=== PATIENT | male | born 1985 | race Caucasian/White ===

== ENCOUNTER 2016-09-28 17:37 | Emergency (ER) | payer BC ==
[2016-09-28 17:48] VITALS: BP 145/98
--- NOTE | 2016-09-28 17:51 | EDM.PDOC ---
ED HPI GENERAL MEDICAL PROBLEM - General Chief Complaint: Skin Complaint Stated Complaint: SUNBURN Time Seen by Provider: 09/28/16 17:38 Source of Information: Reports: Patient, RN, RN Notes Reviewed History Limitations: Reports: No Limitations - History of Present Illness INITIAL COMMENTS - FREE TEXT/NARRATIVE: Patient presents to the ED at [facility] with complaints of a worsening sunburn. Patient states he was out on a genao 2 days ago when he was sunburned. He states he was not wearing any sunscreen. He had been using Aloe Vera with Benzocaine gel the past couple of days, but it is no longer working. He feels anxious and the sunburn is very itchy. No other concerns. Onset Date: 09/26/16 Back Pain Score (Numeric/FACES): 10 - Related Data Allergies Allergy/AdvReac Type Severity Reaction Status Date / Time No Known Drug Allergies Allergy Other Verified 09/28/16 17:50 Home Meds: Home Meds Silver Sulfadiazine [Silvadene 1% Cream 50 GM] 1 applic TOP BID #1 tube [Rx] predniSONE [Prednisone] 20 mg PO BID #8 tablet 09/28/16 [Rx] Past Medical History - Past Health History Medical/Surgical History: Denies Medical/Surgical History Social & Family History - Tobacco Use Smoking Status *Q: Current Every Day Smoker Years of Tobacco use: 25 Packs/Tins Daily: 1 Second Hand Smoke Exposure: No - Alcohol Use Days Per Week of Alcohol Use: 0 Number of Drinks Per Day: 7 Total Drinks Per Week: 0 - Recreational Drug Use Recreational Drug Use: No Drug Use in Last 12 Months: No Recreational Drug Type: Reports: Marijuana/Hashish Recreational Drug Use Frequency: Not Used In Over 6 Months ED ROS GENERAL - Review of Systems Review Of Systems: See Below Constitutional: Denies: Fever, Chills Respiratory: Denies: Shortness of Breath, Cough Cardiovascular: Denies: Chest Pain, Palpitations Skin: Reports: Pruritis, Burn(s) (Sun) Neurological: Reports: No Symptoms ED EXAM, SKIN/RASH Exam: See Below Exam Limited By: No Limitations General Appearance: Alert, No Apparent Distress, Mild Distress Respiratory/Chest: No Respiratory Distress, Lungs Clear, Normal Breath Sounds Cardiovascular: Regular Rate, Rhythm Neurological: Alert, Oriented Skin: Warm, Dry, Normal Color Location, Skin: Chest, Abdomen, Back Characteristics: Other (sunburn) Associated features: Warmth, Tenderness Course - Vital Signs Last Recorded V/S: Last Vital Signs Temp 36.6 C 09/28/16 17:47 Pulse 107 H 09/28/16 17:47 Resp 24 H 09/28/16 17:47 BP 145/98 H 09/28/16 17:47 Pulse Ox 97 09/28/16 17:47 - Orders/Labs/Meds Meds: Medications Discontinued Medications Generic Name Dose Route Start Last Admin Trade Name Martina PRN Reason Stop Dose Admin Hydroxyzine HCl 50 mg 09/28/16 17:54 Vistaril IM 09/28/16 17:55 ONETIME ONE Methylprednisolone Sodium Succinate 125 mg 09/28/16 17:55 Solu-Medrol IM 09/28/16 17:56 ONETIME ONE Prednisone 1 packet 09/28/16 17:55 Take Home: Prednisone 20 Mg, 2 Tab Pack PO 09/28/16 17:56 ONETIME ONE Departure - Departure Time of Disposition: 18:00 Disposition: Home, Self-Care 01 Condition: Good Clinical Impression: Sunburn of second degree - Discharge Information Prescriptions: Silver Sulfadiazine [Silvadene 1% Cream 50 GM] 1 applic TOP BID #1 tube predniSONE [Prednisone] 20 mg PO BID #8 tablet Instructions: Sunburn, [id number], Pruritus Forms: ED Department Discharge Additional Instructions: 1. Stay well hydrated and rest 2. Stay out of the sun, or cover areas with sunscreen if out in sun 3. Apply ice to burn areas several times a day 4. Use burn cream twice a day for 5 days 5. Take medications as directed 6. See your Primary as symptoms warrant - Problem List Review Problem List Initiated/Reviewed/Updated: Yes
[2016-09-28] MEDS ORDERED: hydrOXYzine HCl 50 MG/ML SDV IM ONE (17:54)
[2016-09-28] MEDS ORDERED: Take Home: predniSONE 20 MG, 2 Tab Pack PO ONE (17:55)
[2016-09-28] MEDS ORDERED: methylPREDNISolone Sodium Succinate 125 MG/2 ML SDV IM ONE (17:55)
[2016-09-28] MEDS ORDERED: Silver Sulfadiazine 1% Crm 50 GM Tube TOP ONE (18:18)
== END 2016-09-28 18:20 | disposition home or self-care (01) ==
LOC: VM.ED 17:37
DX: L55.1 Sunburn of second degree (principal); F17.210 Nicotine dependence, cigarettes, uncomplicated
CPT/HCPCS: 96372; 99282; A9270; J2930; J3410

== ENCOUNTER 2017-07-07 21:48 | Emergency (ER) | payer BC, OTHER ==
[2017-07-07 22:00] VITALS: BP 150/89
--- NOTE | 2017-07-07 22:08 | EDM.PDOC ---
ED HPI GENERAL MEDICAL PROBLEM - General Chief Complaint: Lower Extremity Injury/Pain Stated Complaint: ladder fell on foot Time Seen by Provider: 07/07/17 22:07 Source of Information: Reports: Patient, RN, RN Notes Reviewed History Limitations: Reports: No Limitations - History of Present Illness INITIAL COMMENTS - FREE TEXT/NARRATIVE: Patient presents to the ED at [facility] complaining of right foot pain. Patient states a ladder fell and hit the top of his right foot. 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 He states his partner was rolling up a ladder by rope when the rope broke and the ladder got loose and hit the top of the patient's foot. No previous injury or trauma. No previous right foot surgeries. Patient states the pain is mostly on the dorsum of the right foot. He denies any numbness, tingling, or paresthesia to the right lower extremity. Patient states this is a work related injury. Onset: Today, Sudden Onset Date: 07/07/17 Right Feet Pain Score (Numeric/FACES): 8 - Related Data Allergies Allergy/AdvReac Type Severity Reaction Status Date / Time No Known Drug Allergies Allergy Other Verified 07/07/17 22:02 Home Meds: Home Meds Silver Sulfadiazine [Silvadene 1% Cream 50 GM] 1 applic TOP BID #1 tube [Rx] hydrOXYzine Pamoate [Hydroxyzine Pamoate] 50 mg PO Q6HR PRN #20 capsule [Rx] predniSONE [Prednisone] 20 mg PO BID #8 tablet 09/28/16 [Rx] Past Medical History - Past Health History Medical/Surgical History: Denies Medical/Surgical History Social & Family History - Tobacco Use Smoking Status *Q: Current Every Day Smoker Years of Tobacco use: 20 Packs/Tins Daily: 1 Second Hand Smoke Exposure: No - Alcohol Use Days Per Week of Alcohol Use: 0 Number of Drinks Per Day: 7 Total Drinks Per Week: 0 - Recreational Drug Use Recreational Drug Use: No Drug Use in Last 12 Months: No Recreational Drug Type: Reports: Marijuana/Hashish Recreational Drug Use Frequency: Not Used In Over 6 Months Review of Systems - Review of Systems Review Of Systems: See Below Constitutional: Denies: Chills, Fever Respiratory: Denies: Shortness of Breath, Cough Cardiovascular: Denies: Chest Pain, Palpitations Musculoskeletal: Reports: Foot Pain Skin: Reports: No Symptoms Neurological: Reports: No Symptoms. Denies: Numbness, Paresthesia, Tingling ED EXAM, GENERAL - Physical Exam Exam: See Below Exam Limited By: No Limitations General Appearance: Alert, No Apparent Distress Respiratory/Chest: No Respiratory Distress, Lungs Clear, Normal Breath Sounds Cardiovascular: Normal Peripheral Pulses, Regular Rate, Rhythm Peripheral Pulses: 2+: Posterior Tibial (R), Dorsalis Pedis (R) Extremities: Normal Inspection, Normal Range of Motion, Normal Capillary Refill , Other (Right foot appears normal; no evidence of trauma; no obvious bone deformity; no bruising; tender to palpation around the mid shaft 3/4th digits). No: Joint Swelling Neurological: Alert, Oriented, No Motor/Sensory Deficits Skin Exam: Warm, Dry, Intact, Normal Color Course - Vital Signs Last Recorded V/S: Last Vital Signs Temp 36.7 C 07/07/17 21:50 Pulse 115 H 07/07/17 21:50 Resp 20 07/07/17 21:50 BP 150/89 H 07/07/17 21:50 Pulse Ox 95 07/07/17 21:50 - Orders/Labs/Meds Orders: Active Orders 24 hr Category Date Time Status Foot Comp Min 3V Rt [CR] Stat Exams 07/07/17 22:20 Ordered - Radiology Interpretation Free Text/Narrative:: Right Foot 2V-3V: No acute fractures or dislocations on plain film - see scanned report in EMR Departure - Departure Time of Disposition: 22:37 Disposition: Home, Self-Care 01 Condition: Good Clinical Impression: Encounter related to worker's compensation claim Right foot injury Qualifiers: Encounter type: initial encounter Qualified Code(s): S99.921A - Unspecified injury of right foot, initial encounter Contusion of right foot Qualifiers: Encounter type: initial encounter Qualified Code(s): S90.31XA - Contusion of right foot, initial encounter - Discharge Information Instructions: Foot Contusion, Foot Pain Forms: ED Department Discharge Additional Instructions: 1. Stay well hydrated and rest 2. Rest, elevate, and ice the right foot several times a day 3. May alternate Tylenol/Advil as needed for pain 4. No restrictions to the use of your foot 5. Wrap foot with VALENTINO wrap to avoid any foot swelling 6. See your Primary as symptoms warrant 7. Call us with any questions/concerns - Problem List Review Problem List Initiated/Reviewed/Updated: Yes - My Orders Last 24 Hours: My Active Orders 07/07/17 22:20 Foot Comp Min 3V Rt [CR] Stat - Assessment/Plan Last 24 Hours: My Active Orders 07/07/17 22:20 Foot Comp Min 3V Rt [CR] Stat
== END 2017-07-07 22:52 | disposition home or self-care (01) ==
LOC: VM.ED 21:48
DX: S90.31XA Contusion of right foot, initial encounter (principal); F17.210 Nicotine dependence, cigarettes, uncomplicated; Y99.0 Civilian activity done for income or pay
CPT/HCPCS: 73630-RT; 99283

== ENCOUNTER 2019-12-30 15:07 | Emergency (ER) | payer SELFPAY ==
--- NOTE | 2019-12-30 15:40 | EDM.PDOC ---
ED HPI GENERAL MEDICAL PROBLEM - General Chief Complaint: Cardiovascular Problem Stated Complaint: CHEST PAIN Time Seen by Provider: 12/30/19 15:15 Source of Information: Reports: Patient History Limitations: Reports: No Limitations - History of Present Illness INITIAL COMMENTS - FREE TEXT/NARRATIVE: Tray is a 34 year old male who presents to the ER with complaints of left ant erior chest pain. States it does hurt more with deep inspiration, coughing and movement. States awoke with this pain yesterday, has not improved. He denies any shortness of breath. Has chronic cough related to smoking history. No hemoptysis or sputum production. No fevers. Denies any trauma to the area. Has not been lifting or straining self. Has been eating and drinking well. Appetite has been good. No blood in his stools. PMH is positive for anxiety and depression. No cardiac history. Unknown family history as is adopted. Onset: Gradual Duration: Day(s): Location: Reports: Chest Quality: Reports: Ache, Sharp Severity: Moderate Improves with: Reports: Rest Worsens with: Reports: Movement Associated Symptoms: Reports: Chest Pain, Cough. Denies: Confusion, cough w sputum, Diaphoresis, Fever/Chills, Headaches, Loss of Appetite, Nausea/Vomiting, Shortness of Breath, Syncope, Weakness - Related Data Allergies Allergy/AdvReac Type Severity Reaction Status Date / Time No Known Drug Allergies Allergy Other Verified 07/07/17 22:02 Home Meds: Home Meds Silver Sulfadiazine [Silvadene 1% Cream 50 GM] 1 applic TOP BID #1 tube 09/28/16 [Rx] hydrOXYzine pamoate [Hydroxyzine Pamoate] 50 mg PO Q6HR PRN #20 capsule 09/28/16 [Rx] predniSONE [Prednisone] 20 mg PO BID #8 tablet 09/28/16 [Rx] Past Medical History - Past Health History Medical/Surgical History: Denies Medical/Surgical History Psychiatric History: Reports: Anxiety, Depression Social & Family History - Tobacco Use Smoking Status *Q: Current Every Day Smoker ED ROS GENERAL - Review of Systems Review Of Systems: See Below Constitutional: Denies: Fever, Chills, Malaise, Weakness, Fatigue, Decreased Appetite HEENT: Reports: No Symptoms Respiratory: Reports: Pleuritic Chest Pain, Cough. Denies: Shortness of Breath Cardiovascular: Reports: Chest Pain. Denies: Edema, Lightheadedness Endocrine: Denies: Fatigue GI/Abdominal: Denies: Abdominal Pain, Constipation, Diarrhea, Nausea, Vomiting : Reports: No Symptoms Musculoskeletal: Reports: No Symptoms Skin: Reports: No Symptoms Neurological: Reports: No Symptoms Psychiatric: Reports: No Symptoms ED EXAM, GENERAL - Physical Exam Exam: See Below Exam Limited By: No Limitations General Appearance: Alert, WD/WN, No Apparent Distress Ears: Normal External Exam, Normal TMs Nose: Normal Inspection, Normal Mucosa, No Blood Throat/Mouth: Normal Inspection, Normal Oropharynx Head: Normocephalic Neck: Normal Inspection, Supple, Non-Tender Respiratory/Chest: No Respiratory Distress, Lungs Clear, Normal Breath Sounds, Other (chest wall is very tender with palpation, pain reproducible) Cardiovascular: Regular Rate, Rhythm GI/Abdominal: Normal Bowel Sounds, Soft, Non-Tender Extremities: Normal Inspection, No Pedal Edema Neurological: Alert, Oriented Skin Exam: Warm, Dry Course - Orders/Labs/Meds Orders: Active Orders 24 hr Category Date Time Status EKG 12 Lead [EKG Documentation Completion] [RC] AM Care 12/30/19 15:26 Active Labs: Laboratory Tests 12/30/19 12/30/19 Range/Units 15:40 15:40 WBC 8.0 (4.0-10.0) x10^3/uL RBC 5.47 (4.5-6.0) x10^6/uL Hgb 17.9 (14.0-18.0) g/dL Hct 49.2 (40.0-52.0) % MCV 89.9 (78.0-93.0) fL MCH 32.7 H (26.0-32.0) pg MCHC 36.4 H (32.0-36.0) g/dL RDW Coeff of Lucia 12.6 (10.0-15.0) % Plt Count 119 L (130-400) x10^3/uL Neut % (Auto) 49.8 L (50.0-80.0) % Lymph % (Auto) 35.9 (25.0-50.0) % Porter % (Auto) 9.6 (2.0-11.0) % Eos % (Auto) 4.4 H (0.0-4.0) % Baso % (Auto) 0.3 (0.2-1.2) % Sodium 138 (136-145) mmol/L Potassium 4.3 (3.5-5.1) mmol/L Chloride 102 (98-107) mmol/L Carbon Dioxide 29 (21-32) mmol/L Anion Gap 11.3 (10-20) mmol/L BUN 16 (7-18) mg/dL Creatinine 1.1 (0.70-1.30) mg/dL Est Cr Clr Drug Dosing TNP Estimated GFR (MDRD) > 60 Glucose 90 (74-106) mg/dL Calcium 8.8 (8.5-10.1) mg/dL Corrected Calcium 8.72 (8.5-10.1) mg/dL Total Bilirubin 0.6 (0.2-1.0) mg/dL AST 30 (15-37) U/L ALT 67 H (16-63) U/L Alkaline Phosphatase 42 L (46-116) U/L Lactate Dehydrogenase 209 (85-227) U/L Creatine Kinase 439 H* (39-308) U/L Troponin I < 0.017 (<=0.056) ng/mL C-Reactive Protein < 0.2 (<=0.9) mg/dL Total Protein 8.0 (6.4-8.2) g/dL Albumin 4.1 (3.4-5.0) g/dL Globulin 3.9 Albumin/Globulin Ratio 1.05 Meds: Medications Discontinued Medications Generic Name Dose Route Start Last Admin Trade Name Freq PRN Reason Stop Dose Admin Prednisone 1 packet 12/30/19 16:16 Take Home: Prednisone 20 Mg, 2 Tab Pack PO 12/30/19 16:17 ONETIME ONE - Re-Assessments/Exams Free Text/Narrative Re-Assessment/Exam: 12/30/19 16:20 Labs reviewed. CK is elevated. Discussed with patient. Will treat with oral prednisone, follow up if pain persists. Departure - Departure Time of Disposition: 16:20 Disposition: Home, Self-Care 01 Condition: Good Clinical Impression: Costochondritis, acute Instructions: Costochondritis, [id number] Referrals: Osmar Taylor MD [Primary Care Provider] - Forms: ED Department Discharge Additional Instructions: 1. Rest 2. Push fluids 3. Heating pad to chest 4. Prednisone 40 mg daily for 5 days 5. Follow up with primary care provider as needed for further pain - My Orders Last 24 Hours: My Active Orders 12/30/19 15:26 EKG 12 Lead [EKG Documentation Completion] [RC] AM - Assessment/Plan Last 24 Hours: My Active Orders 12/30/19 15:26 EKG 12 Lead [EKG Documentation Completion] [RC] AM
--- NOTE | 2019-12-30 16:03 | CR ---
[id number] RAD/RAD Chest PA And Lateral EXAM: FRONTAL AND LATERAL CHEST INDICATION: CHEST PAIN. COMPARISON: None. DISCUSSION: The heart and lungs are normal in appearance. IMPRESSION: 1. Negative exam. Paul Dalton MD 12/30/19 [id number] Thank you for allowing us to participate in the care of your patient.
[2019-12-30 16:07] LABS: ANION GAP 11.3 mmol/L (10-20); CHLORIDE,CL 102 mmol/L (98-107); SODIUM,NA 138 mmol/L (136-145)
[2019-12-30] MEDS ORDERED: Take Home: predniSONE 20 MG, 2 Tab Pack PO ONE (16:16)
[2019-12-30 20:32] VITALS: BP 142/78; PULSE 72
== END 2019-12-30 16:30 | disposition home or self-care (01) ==
LOC: VM.ED 15:07
DX: M94.0 Chondrocostal junction syndrome [Tietze] (principal); R79.89 Other specified abnormal findings of blood chemistry; F17.200 Nicotine dependence, unspecified, uncomplicated
CPT/HCPCS: 36415; 71046; 80053; 82550; 83615; 84484; 85025; 86140; 93005; 99285-25

== ENCOUNTER 2021-06-05 18:47 | Emergency (ER) | payer SELFPAY ==
[2021-06-05] MEDS ORDERED: Albuterol/Ipratropium 3.0-0.5 MG/3 ML Neb Soln NEB ONE (19:46)
[2021-06-05] MEDS ORDERED: Take Home: Albuterol 18 GM Inhaler, 1 Inhaler Pack INH PRN (20:07)
[2021-06-05] MEDS ORDERED: Take Home: Amoxicillin 875 MG Tab, 2 Tab Pack PO ONE (20:09)
[2021-06-06 05:37] VITALS: BP 132/75; PULSE 98
== END 2021-06-05 20:48 | disposition home or self-care (01) ==
LOC: VM.ED 18:47
DX: J45.909 Unspecified asthma, uncomplicated (principal); H66.92 Otitis media, unspecified, left ear; Z91.030 Bee allergy status
CPT/HCPCS: 94640; 99283-25; 99284; A9270-GY; J7620-GY

== ENCOUNTER 2022-05-04 19:41 | Emergency (ER) | payer OTHER ==
[2022-05-04] MEDS: GI Cocktail Oral Solution 30 ML PO ONE (20:00)
[2022-05-04] MEDS: Orphenadrine 60 MG/2 ML Inj IM ONE (20:15)
[2022-05-04 20:33] LABS: CHLORIDE,CL 107 mmol/L (98-107); SODIUM,NA 143 mmol/L (136-145)
[2022-05-04 20:36] LABS: ANION GAP 13.9 mmol/L (5-15); ESTIMATED GFR 88 mL/min (>=60)
[2022-05-04 20:52] VITALS: BP 117/74; PULSE 86
== END 2022-05-04 21:10 | disposition home or self-care (01) ==
LOC: VM.ED 19:41
DX: K21.9 Gastro-esophageal reflux disease without esophagitis (principal); M25.512 Pain in left shoulder; Z91.013 Allergy to seafood; Z79.899 Other long term (current) drug therapy
CPT/HCPCS: 36415; 71046; 80053; 84484; 85025; 93005; 93010; 96372; 99284; 99285; A9270-GY; J2360

== ENCOUNTER 2023-03-27 18:05 | Emergency (ER) | payer OTHER ==
[2023-03-27 18:15] VITALS: BP 135/72; PULSE 100
[2023-03-27 18:36] LABS: BASOPHILS PERCENT AUTO 0.2 % (0.2-1.2); EOSINOPHILS ABSOLUTE AUTO 0.1 x10^3/uL (0.0-0.5); EOSINOPHILS PERCENT AUTO 0.7 % (0.0-4.0); HEMATOCRIT 52.5 % (40.0-52.0); HEMOGLOBIN 18.7 g/dL (14.0-18.0); IMMATURE GRAN ABSOLUTE AUTO 0.02 x10^3/uL (0.00-0.07); LYMPHOCYTES ABSOLUTE AUTO 1.6 x10^3/uL (1.0-4.8); LYMPHOCYTES PERCENT AUTO 14.7 % (25.0-50.0); MEAN CORPUSCULAR HGB CONC 35.6 g/dL (32.0-36.0); MEAN CORPUSCULAR VOLUME 89.9 fL (78.0-93.0); MONOCYTES ABSOLUTE AUTO 0.7 x10^3/uL (0.0-0.8); MONOCYTES PERCENT AUTO 6.6 % (2.0-11.0); NEUTROPHILS ABSOLUTE AUTO 8.5 x10^3/uL (1.8-7.7); NEUTROPHILS PERCENT AUTO 77.6 % (50.0-80.0); PLATELET COUNT,PLT 141 x10^3/uL (130-400); RED BLOOD CELL COUNT 5.84 x10^6/uL (4.5-6.0); WHITE BLOOD CELL COUNT,WBC 10.9 x10^3/uL (4.0-10.0)
[2023-03-27 18:38] LABS: APPEARANCE,URINE CLEAR (CLEAR); BILIRUBIN,URINE SMALL (NEGATIVE); COLOR,URINE DARK YELLOW (YELLOW); GLUCOSE,URINE NEGATIVE (NEGATIVE); KETONES,URINE NEGATIVE (NEGATIVE); LEUKOCYTE ESTERASE,URINE NEGATIVE (NEGATIVE); NITRITE,URINE NEGATIVE (NEGATIVE); OCCULT BLOOD,URINE NEGATIVE (NEGATIVE); PROTEIN,URINE 30 mg/dL (NEGATIVE); UROBILINOGEN,URINE 0.2 EU/dL (0.2)
[2023-03-27 18:43] LABS: AMPHETAMINES SCREEN, URINE NEGATIVE (NEGATIVE); BARBITURATE SCREEN,URINE NEGATIVE (NEGATIVE); BENZODIAZEPINES SCREEN,URINE NEGATIVE (NEGATIVE); BUPRENORPHINE SCREEN,URINE NEGATIVE (NEGATIVE); COCAINE METABOLITES,URINE NEGATIVE (NEGATIVE); METHADONE SCREEN, URINE NEGATIVE (NEGATIVE); METHAMPHETAMINE SCREEN, URINE NEGATIVE (NEGATIVE); OXYCODONE SCREEN,URINE NEGATIVE (NEGATIVE); PCP SCREEN,URINE NEGATIVE (NEGATIVE); THC SCREEN,URINE 50 NG/ML NEGATIVE (NEGATIVE)
[2023-03-27 18:49] LABS: BACTERIA,URINE NOT SEEN /HPF (NOT SEEN); MUCUS,URINE MANY /LPF (NOT SEEN); RBC,URINE NOT SEEN /HPF (NOT SEEN); SQUAMOUS EPITHELIAL CELLS,UR RARE /HPF (NOT SEEN); WBC,URINE 0-5 /HPF (NOT SEEN)
[2023-03-27 19:06] LABS: A/G RATIO 1.31; ALANINE AMINOTRANSFERASE,ALT 62 U/L (16-63); ALBUMIN 4.7 g/dL (3.4-5.0); ALKALINE PHOSPHATASE 53 U/L (46-116); ASPARTATE AMNIOTRANSFERASE,AST 24 U/L (15-37); BILIRUBIN TOTAL 0.7 mg/dL (0.2-1.0); BLOOD UREA NITROGEN,BUN 10 mg/dL (7-18); CALCIUM 9.6 mg/dL (8.5-10.1); CARBON DIOXIDE,CO2 31 mmol/L (21-32); CHLORIDE,CL 102 mmol/L (98-107); CREATININE 1.2 mg/dL (0.70-1.30); GLUCOSE RANDOM 104 mg/dL (70-99); POTASSIUM,K 3.9 mmol/L (3.5-5.1); PROTEIN TOTAL,TP 8.3 g/dL (6.4-8.2); SODIUM,NA 142 mmol/L (136-145); TSH ULTRASENSITIVE 1.151 uIU/mL (0.358-3.74)
[2023-03-27 19:11] LABS: ANION GAP 12.9 mmol/L (5-15); ESTIMATED GFR 79 mL/min (>=60)
[2023-03-27 19:12] LABS: ACETAMINOPHEN 0 ug/ml (10-30); ETHANOL BLOOD MEDICAL < 3 mg/dL (0-3)
== END 2023-03-27 19:48 | disposition home or self-care (01) ==
LOC: VM.ED 18:05
DX: F32.9 Major depressive disorder, single episode, unspecified (principal); R45.851 Suicidal ideations; Z91.013 Allergy to seafood
CPT/HCPCS: 36415; 80053; 80143; 80179; 80305-QW; 80307; 81001; 83735; 84443; 85025; 99285

== ENCOUNTER 2023-06-23 22:21 | Emergency (ER) | payer SELFPAY ==
[2023-06-23 22:52] VITALS: BP 118/76; PULSE 118
[2023-06-23] MEDS: Ibuprofen 200 MG Tab PO ONE (22:59)
[2023-06-23 23:24] LABS: CORONAVIRUS COVID-19 NAA NEGATIVE (NEGATIVE)
[2023-06-23 23:25] LABS: INFLUENZA B NAA NEGATIVE (NEGATIVE)
[2023-06-23 23:26] LABS: RESPIRATORY SYNCYTIAL VIR NAA NEGATIVE (NEGATIVE)
[2023-06-23] MEDS: Take Home: Oseltamivir 75 MG Cap, 2 Cap Pack PO ONE (23:30)
[2023-06-23] MEDS: Benzonatate 100 MG Cap PO ONE (23:33)
[2023-06-28 15:30] LABS: INFLUENZA A NAA POSITIVE (NEGATIVE)
== END 2023-06-23 23:39 | disposition home or self-care (01) ==
LOC: VM.ED 22:21
DX: J10.1 Influenza due to other identified influenza virus with other respiratory manifestations (principal); F17.210 Nicotine dependence, cigarettes, uncomplicated; Z91.013 Allergy to seafood
CPT/HCPCS: 0241U; 87651-QW; 99283; A9270-GY

== ENCOUNTER 2024-06-26 12:07 | Emergency (ER) | payer OTHER ==
[2024-06-26] MEDS ORDERED: Sodium Chloride 0.9% 10 ML Syringe FLUSH PRN (12:27)
[2024-06-26 12:33] LABS: BASOPHILS PERCENT AUTO 0.1 % (0.2-1.2); EOSINOPHILS ABSOLUTE AUTO 0.2 x10^3/uL (0.0-0.5); EOSINOPHILS PERCENT AUTO 2.7 % (0.0-4.0); HEMATOCRIT 50.9 % (40.0-52.0); HEMOGLOBIN 18.4 g/dL (14.0-18.0); IMMATURE GRAN ABSOLUTE AUTO 0.01 x10^3/uL (0.00-0.07); LYMPHOCYTES ABSOLUTE AUTO 1.2 x10^3/uL (1.0-4.8); LYMPHOCYTES PERCENT AUTO 14.5 % (25.0-50.0); MEAN CORPUSCULAR HEMOGLOBIN 32.3 pg (26.0-32.0); MEAN CORPUSCULAR HGB CONC 36.1 g/dL (32.0-36.0); MEAN CORPUSCULAR VOLUME 89.3 fL (78.0-93.0); MONOCYTES ABSOLUTE AUTO 0.6 x10^3/uL (0.0-0.8); MONOCYTES PERCENT AUTO 7.6 % (2.0-11.0); PLATELET COUNT,PLT 134 x10^3/uL (130-400); WHITE BLOOD CELL COUNT,WBC 8.1 x10^3/uL (4.0-10.0)
[2024-06-26] MEDS: Lactated Ringers 1,000 ML IV ONE ×2 (12:38→13:14)
[2024-06-26] MEDS: Ondansetron 4 MG/2 ML SDV IVPUSH ONE (12:38)
[2024-06-26] MEDS: Ketorolac 15 MG/ML SDV IVPUSH ONE (12:38)
[2024-06-26 12:47] LABS: APPEARANCE,URINE CLEAR (CLEAR); BILIRUBIN,URINE NEGATIVE (NEGATIVE); COLOR,URINE DARK YELLOW (YELLOW); GLUCOSE,URINE NEGATIVE (NEGATIVE); KETONES,URINE NEGATIVE (NEGATIVE); LEUKOCYTE ESTERASE,URINE NEGATIVE (NEGATIVE); NITRITE,URINE NEGATIVE (NEGATIVE); OCCULT BLOOD,URINE NEGATIVE (NEGATIVE); PH,URINE 5.5 (5.0-8.0); PROTEIN,URINE 30 mg/dL (NEGATIVE); UROBILINOGEN,URINE 0.2 EU/dL (0.2)
[2024-06-26 12:51] LABS: A/G RATIO 1.08; ALANINE AMINOTRANSFERASE,ALT 105 U/L (16-63); ALBUMIN 4.1 g/dL (3.4-5.0); ALKALINE PHOSPHATASE 59 U/L (46-116); ANION GAP 10.9 mmol/L (5-15); ASPARTATE AMNIOTRANSFERASE,AST 40 U/L (15-37); BILIRUBIN TOTAL 0.7 mg/dL (0.2-1.0); BLOOD UREA NITROGEN,BUN 18 mg/dL (7-18); C-REACTIVE PROTEIN 2.41 mg/dL (<=0.50); CALCIUM 8.7 mg/dL (8.5-10.1); CARBON DIOXIDE,CO2 28 mmol/L (21-32); CHLORIDE,CL 102 mmol/L (98-107); CREATININE 1.1 mg/dL (0.70-1.30); ESTIMATED GFR 87 mL/min (>=60); GLUCOSE RANDOM 108 mg/dL (70-99); LIPASE 25 U/L (19-71); POTASSIUM,K 3.9 mmol/L (3.5-5.1); PROTEIN TOTAL,TP 7.9 g/dL (6.4-8.2); SODIUM,NA 137 mmol/L (136-145)
[2024-06-26 12:57] LABS: BACTERIA,URINE RARE /HPF (NOT SEEN); EPITHELIAL CELLS,URINE RARE; MUCUS,URINE MODERATE /LPF (NOT SEEN); RBC,URINE 0-5 /HPF (NOT SEEN); WBC,URINE 0-5 /HPF (NOT SEEN)
[2024-06-26 13:10] VITALS: BP 118/66; PULSE 95
== END 2024-06-26 14:05 | disposition home or self-care (01) ==
LOC: VM.ED 12:07
DX: K52.9 Noninfective gastroenteritis and colitis, unspecified (principal); F17.210 Nicotine dependence, cigarettes, uncomplicated; Z91.013 Allergy to seafood; Z79.899 Other long term (current) drug therapy
CPT/HCPCS: 36415; 80053; 81001; 83690; 85025; 86140; 96361; 96374; 96375; 99283; 99284-25; J1885; J2405; J7120

== ENCOUNTER 2024-10-23 15:28 | Emergency (ER) | payer OTHER ==
[2024-10-23 15:50] VITALS: BP 126/72; PULSE 78
[2024-10-23] MEDS: Ketorolac 30 MG/ML SDV IM ONE (15:55)
[2024-10-23] MEDS: diphenhydrAMINE 50 MG/ML SDV IM ONE (15:56)
== END 2024-10-23 16:32 | disposition home or self-care (01) ==
LOC: VM.ED 15:28
DX: G43.909 Migraine, unspecified, not intractable, without status migrainosus (principal); Z91.013 Allergy to seafood; Z79.899 Other long term (current) drug therapy
CPT/HCPCS: 96372; 99283; J1200; J1885; J2765; 99282